=== PATIENT | female | born 1980 | race American Indian/Alaskan Native ===

== ENCOUNTER 2018-08-07 09:18 | Day surgery (SDC) | payer OTHER ==
[2018-08-06 11:04] VITALS: BMI 29.9
--- NOTE | 2018-08-07 11:16 | CP.SDSHP ---
Same Day Surgery H & P - History Proposed Procedure: COLONSCOPY Pre-Op Diagnosis: SEE NOTES - Previous Medical/Surgical History Cardiac: Hypertension Endocrine/Metabolic: Diabetes, Other Neuro: Backaches - Allergies Allergies: Allergies No Known Allergies Allergy (Verified 08/06/18 11:03) - Physical Exam General Appearance: N Vital Signs: Vital Signs 08/07/18 10:10 Temperature 97.8 F Pulse Rate 80 Respiratory 20 Rate Blood Pressure 117/74 O2 Sat by Pulse 99 Oximetry Mental Status: Alert & Oriented x3 Heart: Other Lungs: WNL GI: Other - {Optional Preform as Required} Breast: WNL Abdomen: Other Rectal: Other Integument: WNL : WNL Ortho: Other ENT: WNL - Impression Pt. Evaluated Today:Candidate for Anesthesia & Procedure: Yes - Date & Time Time: 11:17 Short Stay Discharge - Short Stay Discharge Admitting Diagnosis/Reason for Visit: DIARRHEA Disposition: HOME/ ROUTINE
[2018-08-07] MEDS ORDERED: Midazolam 2 MG/2 ML VIAL ONE (11:21)
[2018-08-07] MEDS ORDERED: Propofol 10 mg/ml Inj (20 ML) ONE ×2 (11:21)
[2018-08-07] MEDS ORDERED: Lactated Ringer's 500 ML IV ONE (11:26)
[2018-08-07] MEDS ORDERED: MethylPREDNISolone 40 mg Vial IVP STA (11:41)
[2018-08-07] MEDS ORDERED: Belladonna-Phenobarbital PO ONE (11:55)
[2018-08-07 12:52] VITALS: TEMP 98
[2018-08-07 12:53] VITALS: PULSE 88; O2SAT 100
[2018-08-07 12:54] VITALS: BP 117/70; RESP 18
== END 2018-08-07 13:05 | disposition home or self-care (01) ==
LOC: C.ENDO 09:18
PROVIDERS: ATTEND Specialist
DX: K64.8 Other hemorrhoids (principal); K52.9 Noninfective gastroenteritis and colitis, unspecified; K64.4 Residual hemorrhoidal skin tags; E11.9 Type 2 diabetes mellitus without complications; I10 Essential (primary) hypertension
CPT/HCPCS: 45380; 82948; 84703; 88305; J2250; J2704; J2920; J7040; J7120